=== PATIENT | female | born 1995 | race Caucasian/White ===

== ENCOUNTER 2016-08-06 20:23 | Emergency (ER) | payer OTHER ==
[2016-08-06] MEDS ORDERED: CLINDAMYCIN 150 MG CAPSULE PO STA (20:54)
[2016-08-06] MEDS ORDERED: CLINDAMYCIN 150 MG CAPSULE PO ONE (20:57)
== END 2016-08-06 21:13 | disposition home or self-care (01) ==
DX: N89.8 Other specified noninflammatory disorders of vagina (principal); R10.9 Unspecified abdominal pain; R30.0 Dysuria
CPT/HCPCS: 81001; 81025; 87086; 99283; A9270

== ENCOUNTER 2016-09-05 | Emergency (ER) | payer OTHER | END 2016-09-05 17:44 | disposition home or self-care (01) ==